=== PATIENT | female | born 1950 | race Caucasian/White ===

== ENCOUNTER 2023-06-27 07:25 | Day surgery (SDC) | payer OTHER ==
[2023-06-22 09:23] VITALS: BMI 30.2
[2023-06-27] MEDS ORDERED: LIDOCAINE HCL/PF 2% SDV 5ML VIAL ONE (07:57)
[2023-06-27] MEDS ORDERED: PROPOFOL 120 ML ONE (07:58)
[2023-06-27 09:09] VITALS: BP 125/67; PULSE 78; RESP 18; TEMP 97.2
== END 2023-06-27 09:09 | disposition home or self-care (01) ==
LOC: FASU-ENDO 07:25
PROVIDERS: ATTEND Internal Medicine Gastroenterology
PROC: 0DJD8ZZ Inspection of Lower Intestinal Tract, Via Natural or Artificial Opening Endoscopic (ICD-10-PCS; principal; 2023-06-27 08:15)
DX: Z12.11 Encounter for screening for malignant neoplasm of colon (principal); Z85.038 Personal history of other malignant neoplasm of large intestine; Z98.0 Intestinal bypass and anastomosis status